=== PATIENT | male | born 1985 | race Hispanic/Latino ===

== ENCOUNTER 2024-03-23 18:26 | Observation (INO) | payer OTHER ==
[2024-03-23] MEDS ORDERED: NA CHLORIDE 0.9% 1,000 ML ONE (18:36)
[2024-03-23 18:43] LABS: Absolute Lymphocytes (CBC) 0.7 K/uL (0.7-4.9); Absolute Monocytes 0.8 K/uL (0.1-1.3); Absolute Neutrophil 10.7 K/uL (1.8-8.0); Basophils % 0.2 % (0-1.3); Eosinophils % 0.2 % (0-4.4); Hematocrit 35.4 % (39.6-49.0); Hemoglobin 12.2 g/dL (13.6-17.9); Lymphocytes % 5.9 % (15.3-44.8); MCH 30.7 pg (27.0-35.0); MCHC 34.3 g/dL (32.0-36.0); MCV 89.4 fL (80-100); MPV 8.3 fL (7.6-11.3); Monocytes % 6.3 % (3.3-12.3); Neutrophils % 87.4 % (41.7-73.7); Platelets 132 thou/uL (152-406); RBC Red Blood Cell Count 3.96 M/uL (4.33-5.43); Red Cell Distribution Width 14.6 % (12.1-15.2)
[2024-03-23 18:46] LABS: PT Prothrombin Time 13.1 SECONDS (9.4-12.5); PTT, Activated Partial Thromb 29.1 SECONDS (24.3-36.9); Protime INR 1.18
[2024-03-23 19:17] LABS: Albumin 3.2 g/dL (3.4-5.0); Albumin/Globulin Ratio 1.1 (1.1-1.8); Anion Gap 12.2 mEq/L (5.0-15.0); Bilirubin Direct 0.2 mg/dL (0-0.2); Bilirubin Indirect, Calculated 0.4 mg/dL (0.2-0.8); Bilirubin Total 0.6 mg/dL (0.2-1.0); Magnesium 1.6 mg/dL (1.6-2.4); Potassium 3.2 mEq/L (3.5-5.1); Protein, Total 6.2 g/dL (6.4-8.2)
[2024-03-23 19:21] LABS: Troponin High Sensitivity 72.6 pg/mL (<58.9)
--- NOTE | 2024-03-23 19:58 | RAD REPORT ---
EXAM: Head Brain Wo Cont HISTORY: CONFUSED COMPARISON: None TECHNIQUE: Multiple contiguous axial images were obtained for a CT of the brain without contrast. Sag ittal and coronal reformats were performed. One or more of the following dose reduction techniques were used: Automated exposure control, adjus tment of the mA and kV according to patient size, and iterative reconstruction. Unless otherwise specified, incidental findings do not require dedicated imaging follow-up. FINDINGS: No evidence of hydrocephalus, intracranial hemorrhage, or extra-axial fluid collection. The brain is normal in morphology. The calvarium is intact. The visualized paranasal sinuses and mastoid air cells are essentially clear . IMPRESSION: No evidence of acute intracranial abnormality.
--- NOTE | 2024-03-23 20:00 | ER ---
Nurse's Notes [facility] Name: Arthur Doran Age: 38 yrs Sex: Male : 1985 Arrival Date: 03/23/2024 Time: 18:26 Bed 6 Private MD: Diagnosis: Altered mental status, unspecified;Rhabdomyolysis;Heat exhaustion, unspecified Presentation: 03/23 18:27 Chief complaint: EMS states: toned out for unresponsive patient at his job. Works me1 outside. Patient only woke up for EMS when IV was established. 18 g LFA with about 500ml of NS administered. BGL 103. BP 111/58, hr 80s. Coronavirus screen:. Ebola Screen: No symptoms or risks identified at this time. Initial Sepsis Screen: Does the patient meet any 2 criteria? No. Patient's initial sepsis screen is negative. Does the patient have a suspected source of infection? No. Patient's initial sepsis screen is negative. Risk Assessment: Do you want to hurt yourself or someone else? Patient reports no desire to harm self or others. Onset of symptoms was March 23, 2024. 18:27 Method Of Arrival: EMS: [facility] me1 18:27 Acuity: JANI 3 me1 18:27 Care prior to arrival: Medication(s) given: Normal saline infusion, 500 mL, IV me1 initiated. 18 GA, in the left forearm. Triage Assessment: 18:31 General: Appears distressed, well developed, well nourished, Behavior is cooperative, me1 appropriate for age, anxious, Reports Patient was unresponsive while working outside at work. On arrival to ER patient is awake but not speaking and looking around as though he is confused. Pain: Unable to use pain scale. Patient is disoriented. EENT: No signs and/or symptoms were reported regarding the EENT system. Neuro: Level of Consciousness is awake, alert, obeys commands, confused, Oriented to person. Cardiovascular: Patient's skin is warm and dry. Respiratory: Airway is patent Respiratory effort is even, unlabored, Respiratory pattern is regular, symmetrical. GI: No signs and/or symptoms were reported involving the gastrointestinal system. : No signs and/or symptoms were reported regarding the genitourinary system. Derm: Skin is intact, Skin is clammy, Skin is pink, warm \T\ dry. Musculoskeletal: No signs and/or symptoms reported regarding the musculoskeletal system. Historical: - Allergies: 18:31 No Known Allergies; me1 - PMHx: 18:44 None; me1 - PSHx: 18:44 None; me1 - Immunization history:: Adult Immunizations unknown. - Infectious Disease History:: Denies. - Social history:: Smoking status: unknown. - Family history:: not pertinent. - Hospitalizations: : No recent hospitalization is reported. Screenin:34 [facility] ED Fall Risk Assessment (Adult) History of falling in the last 3 months, me1 including since admission No falls in past 3 months (0 pts) Confusion or Disorientation Yes (5 pts) Intoxicated or Sedated No (0 pts) Impaired Gait No (0 pts) Mobility Assist Device Used No (0 pt) Altered Elimination No (0 pt) Score/Fall Risk Level 0 - 2 = Low Risk Maintained a safe environment, Provided non-skid footwear, Hourly rounding (assess needs \T\ fall precautionary measures) done. Abuse screen: Denies threats or abuse. Nutritional screening: No deficits noted. Tuberculosis screening: No symptoms or risk factors identified. Assessment: 18:34 General: See triage assessment.. me1 18:43 Neuro: Level of Consciousness is awake, alert, obeys commands, Oriented to person, me1 place, time, situation, Patient is awake now and answering questions. A\T\Ox4. . 20:12 Reassessment: Patient appears in no apparent distress at this time. Patient and/or bm8 family updated on plan of care and expected duration. Pain level reassessed. Patient is alert, oriented x 3, equal unlabored respirations, skin warm/dry/pink. Patient denies pain at this time. Patient states symptoms have improved. General: Appears in no apparent distress. comfortable, Behavior is calm, cooperative, appropriate for age. Pain: Denies pain. Neuro: Level of Consciousness is awake, alert, obeys commands, Oriented to person, place, time, situation, Appropriate for age Sod Farmer are equal bilaterally Moves all extremities. Full function Speech is normal, Facial symmetry appears normal, Pupils are PERRLA, Intact. Cardiovascular: Denies chest pain, Capillary refill < 3 seconds in bilateral fingers Patient's skin is warm and dry. Respiratory: Airway is patent Respiratory effort is even, unlabored, Respiratory pattern is regular, symmetrical, Breath sounds are clear bilaterally. GI: No signs and/or symptoms were reported involving the gastrointestinal system. : No signs and/or symptoms were reported regarding the genitourinary system. EENT: No signs and/or symptoms were reported regarding the EENT system. Derm: No signs and/or symptoms reported regarding the dermatologic system. Musculoskeletal: No signs and/or symptoms reported regarding the musculoskeletal system. 21:01 Reassessment: Patient appears in no apparent distress at this time. No changes from bm8 previously documented assessment. Patient and/or family updated on plan of care and expected duration. Pain level reassessed. Patient is alert, oriented x 3, equal unlabored respirations, skin warm/dry/pink. Patient denies pain at this time. Patient states symptoms have improved. Vital Signs: 18:27 BP 106 / 61; Pulse 85; Resp 18; Temp 97.9; Pulse Ox 94% ; me1 18:44 Weight 65.77 kg; Height 5 ft. 5 in. ; Pain 0/10; me1 20:12 BP 112 / 60; Pulse 66; Resp 17; Temp 97.9; Pulse Ox 94% ; Pain 0/10; bm8 21:01 BP 96 / 49; Pulse 72; Resp 17; Temp 97.9; Pulse Ox 97% ; Pain 0/10; bm8 18:44 Body Mass Index 24.13 (65.77 kg, 165.1 cm) me1 18:44 Pain Scale: Adult me1 20:12 Pain Scale: Adult bm8 21:01 Pain Scale: Adult bm8 [place] Coma Score: 20:12 Eye Response: spontaneous(4). Motor Response: obeys commands(6). Verbal Response: bm8 oriented(5). Total: 15. 21:01 Eye Response: spontaneous(4). Motor Response: obeys commands(6). Verbal Response: bm8 oriented(5). Total: 15. ED Course: 18:27 Patient arrived in ED. rn 18:27 Pankaj Bhatt MD is Attending Physician. rn 18:27 Makeda Poe RN is Primary Nurse. me1 18:30 Triage completed. me1 18:31 Arm band placed on Patient placed in an exam room. me1 18:34 Patient has correct armband on for positive identification. Bed in low position. Call me1 light in reach. Side rails up X2. Provided Education on: POC. Verbalized understanding. . Client placed on continuous cardiac and pulse oximetry monitoring. NIBP monitoring applied. court monitor on. Pulse ox on. NIBP on. 18:34 No provider procedures requiring assistance completed. Maintain EMS IV. Dressing me1 intact. Good blood return noted. Site clean \T\ dry. Gauge \T\ site: 18g LFA. Flushed with 10 mL NS. 18:37 Basic Metabolic Panel Sent. me1 18:37 CBC with Diff Sent. me1 18:37 Hepatic Function Sent. me1 18:37 Magnesium Sent. me1 18:37 Protime (+inr) Sent. me1 18:37 Ptt, Activated Sent. me1 18:37 Troponin High Sensitivity Sent. me1 18:43 EKG done, by ED staff, reviewed by Pankaj Bhatt MD. me1 19:31 CT Head Brain wo Cont In Process Unspecified. EDMS 19:44 Chest Single View XRAY In Process Unspecified. EDMS 19:59 Jorge Luis Hinds is Hospitalizing Provider. rn 20:12 Report received from STEPHANIE garcia. bm8 20:12 Patient admitted, IV remains in place. Patient maintains SpO2 saturation greater than bm8 95% on room air. Administered Medications: 18:44 Drug: NS 0.9% IV 1000 ml IV at 1000 ml once Route: IV; Rate: 1000 ml; Site: left kc6 forearm; 20:12 Follow up: Response: No adverse reaction; IV Status: Completed infusion; IV Intake: bm8 1000ml 20:11 Drug: Calcium Gluconate IVPB 1 grams IVPB once over 60 mins; (mix in NS 100 mL) Route: bm8 IVPB; Infused Over: 60 mins; Site: left forearm; 21:00 Follow up: Response: No adverse reaction; IV Status: Completed infusion; IV Intake: [id number] 20:35 Drug: Aspirin PO 325 mg PO once Route: PO; bm8 20:57 Follow up: Response: No adverse reaction bm8 Medication: 18:34 VIS not applicable for this client. me1 Intake: 20:12 IV: 1000ml; Total: 1000ml. bm8 21:00 IV: 50ml; Total: 1050ml. bm8 Outcome: 19:59 Decision to Hospitalize by Provider. rn 21:56 Admitted to [facility] via [facility] room 415, bm8 21:56 Condition: stable 21:56 Instructed on follow up and referral plans. the need for admit, safety practices, Demonstrated understanding of instructions, follow-up care, 21:57 Patient left the ED. bm8 Signatures: Dispatcher [employer] EDPankaj Rainey MD MD rn Campbell, Kaitlyn RN RN kc6 Makeda Poe RN RN il1 Anupam Shah RN RN bm8
--- NOTE | 2024-03-23 20:00 | EDPHYS ---
Physician Documentation [facility] Name: Arthur Doran Age: 38 yrs Sex: Male : 1985 Arrival Date: 03/23/2024 Time: 18:26 Bed 6 Private MD: ED Physician Pankaj Bhatt HPI: 03/23 19:31 This 36 yrs old Male presents to ER via EMS with complaints of Altered Mental rn Status, Heat Exposure. 19:31 The patient presents with decreased responsiveness, disorientation. Onset: The rn symptoms/episode began/occurred today. Possible causes: Heat exhaustion. Current symptoms: In the emergency department the patient's symptoms have improved. It is unknown whether or not the patient has had similar symptoms in the past. 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 They reported he started acting funny and confused, try to get him to drink stuff but did not improve. Patient was not acting right for EMS and nonverbal. Glucose was greater than 100. Patient opened eyes but did not really speak or follow commands appropriately. Now improving. Patient does not recall what happened and is starting to speak a little bit more. Denies drug use. No known trauma.. Historical: - Allergies: 18:31 No Known Allergies; me1 - PMHx: 18:44 None; me1 - PSHx: 18:44 None; me1 - Immunization history:: Adult Immunizations unknown. - Infectious Disease History:: Denies. - Social history:: Smoking status: unknown. - Family history:: not pertinent. - Hospitalizations: : No recent hospitalization is reported. ROS: 19:31 Unable to obtain ROS due to altered mental status, rn Exam: 19:31 Constitutional: This is a well developed, well nourished patient who is awake, alert, rn seems confused and very slow to respond Head/Face: Normocephalic, atraumatic. Eyes: Pupils equal round and reactive to light, extra-ocular motions intact. ENT: Dry mucous membranes Cardiovascular: Regular rate and rhythm. No pulse deficits. Respiratory: No increased work of breathing, no retractions or nasal flaring. Abdomen/GI: Soft, non-tender MS/ Extremity: Pulses equal, no cyanosis. Neurovascular intact. Full, normal range of motion. Equal circumference. Neuro: Awake, alert, slow to respond but moves all 4 extremities. 19:56 ECG was reviewed by the Attending Physician. rn Vital Signs: 18:27 BP 106 / 61; Pulse 85; Resp 18; Temp 97.9; Pulse Ox 94% ; me1 18:44 Weight 65.77 kg; Height 5 ft. 5 in. ; Pain 0/10; me1 20:12 BP 112 / 60; Pulse 66; Resp 17; Temp 97.9; Pulse Ox 94% ; Pain 0/10; bm8 21:01 BP 96 / 49; Pulse 72; Resp 17; Temp 97.9; Pulse Ox 97% ; Pain 0/10; bm8 18:44 Body Mass Index 24.13 (65.77 kg, 165.1 cm) me1 18:44 Pain Scale: Adult me1 20:12 Pain Scale: Adult bm8 21:01 Pain Scale: Adult bm8 [place] Coma Score: 20:12 Eye Response: spontaneous(4). Motor Response: obeys commands(6). Verbal Response: bm8 oriented(5). Total: 15. 21:01 Eye Response: spontaneous(4). Motor Response: obeys commands(6). Verbal Response: bm8 oriented(5). Total: 15. MDM: 18:27 Patient medically screened. rn 19:52 ED course: Patient much more alert, has elevated troponin and signs of rhabdomyolysis. rn Will admit to hospital service for further care.. 20:00 Differential Diagnosis: electrolyte abnormality, seizure, volume depletion, rn Rhabdomyolysis, dehydration, heat exhaustion. Data reviewed: vital signs, nurses notes, lab test result(s), EKG, radiologic studies, CT scan, and as a result, I will admit patient. Data reviewed: radiologic studies, plain films. Consideration of Admission/Observation Patient was admitted/placed on observation. Escalation of care including admission/observation considered. Counseling: I had a detailed discussion with the patient and/or guardian regarding the historical points, exam findings, and any diagnostic results supporting the discharge/admit diagnosis, lab results, radiology results, the need for further work-up and treatment in the hospital. Response to treatment: the patient's symptoms have markedly improved after treatment. 03/23 18: Order name: Basic Metabolic Panel; Complete Time: 19:30 rn 03/23 18:28 Order name: CBC with Diff; Complete Time: :30 rn 03/23 18:28 Order name: Hepatic Function; Complete Time: 19:30 rn 03/23 18:28 Order name: Magnesium; Complete Time: 19:30 rn 03/23 18:28 Order name: Protime (+inr); Complete Time: 19:30 rn 03/23 18:28 Order name: Ptt, Activated; Complete Time: 19:30 rn 03/23 18:28 Order name: Troponin High Sensitivity; Complete Time: 19:30 rn 03/23 18:28 Order name: UDS rn 03/23 18:28 Order name: Urinalysis w/ reflexes rn 03/23 18:28 Order name: CK; Complete Time: 19:30 rn 03/23 18:42 Order name: ETOH Level; Complete Time: 19:30 rn 03/23 18:45 Order name: Glucose, Ancillary Testing; Complete Time: 19:30 EDWA 03/23 21:05 Order name: Urinalysis w/ reflexes EDWA 03/23 21:05 Order name: CBC with Automated Diff EDWA 03/23 21:05 Order name: CBC with Automated Diff EDWA 03/23 21:05 Order name: Comprehensive Metabolic Panel EDWA 03/23 21:05 Order name: Comprehensive Metabolic Panel EDWA 03/23 21:05 Order name: Creatine Phosphokinase EDWA 03/23 21:05 Order name: Creatine Phosphokinase EDWA 03/23 21:05 Order name: Creatine Phosphokinase EDWA 03/23 21:05 Order name: Creatine Phosphokinase EDWA 03/23 21:05 Order name: Lipid Profile EDWA 03/23 21:05 Order name: Lipid Profile EDWA 03/23 21:05 Order name: Magnesium EDMS 03/23 21:05 Order name: Magnesium EDMS 03/23 21:05 Order name: Thyroid Stimulating Hormone EDWA 03/23 21:05 Order name: Thyroid Stimulating Hormone EDWA 03/23 21:05 Order name: Troponin High Sensitivity EDWA 03/23 21:05 Order name: Troponin High Sensitivity EDWA 03/23 21:05 Order name: Troponin High Sensitivity EDWA 03/23 21:05 Order name: Troponin High Sensitivity EDWA 03/23 18:28 Order name: CT Head Brain wo Cont; Complete Time: 20:01 rn 03/23 18:28 Order name: Chest Single View XRAY rn 03/23 21:05 Order name: Echo with Doppler EDMS 03/23 21:05 Order name: Echo with Doppler EDMS 03/23 21:06 Order name: Carotid Artery Bilateral EDMS 03/23 18:28 Order name: Cardiac monitoring; Complete Time: 18:43 rn 03/23 18:28 Order name: EKG - Nurse/Tech; Complete Time: 18:43 rn 03/23 18:28 Order name: IV Saline Lock; Complete Time: 18:28 rn 03/23 18:28 Order name: Labs collected and sent; Complete Time: 18:44 rn 03/23 18:28 Order name: NPO; Complete Time: 18:28 rn 03/23 18:28 Order name: O2 Per Protocol; Complete Time: 18:28 rn 03/23 18:28 Order name: O2 Sat Monitoring; Complete Time: 18:28 rn 03/23 18:28 Order name: Glucose Level; Complete Time: 18:36 rn EC:56 Rate is 83 beats/min. Rhythm is regular. QRS [place] is Normal. CO interval is normal. QRS rn interval is normal. QT interval is normal. No Q waves. T waves are Normal. No ST changes noted. Clinical impression: Normal ECG. Interpreted by me. Reviewed by me. Administered Medications: 18:44 Drug: NS 0.9% IV 1000 ml IV at 1000 ml once Route: IV; Rate: 1000 ml; Site: left kc6 forearm; 20:12 Follow up: Response: No adverse reaction; IV Status: Completed infusion; IV Intake: bm8 1000ml 20:11 Drug: Calcium Gluconate IVPB 1 grams IVPB once over 60 mins; (mix in NS 100 mL) Route: bm8 IVPB; Infused Over: 60 mins; Site: left forearm; 21:00 Follow up: Response: No adverse reaction; IV Status: Completed infusion; IV Intake: [id number] 20:35 Drug: Aspirin PO 325 mg PO once Route: PO; bm8 20:57 Follow up: Response: No adverse reaction bm8 Disposition Summary: 03/23/24 19:59 Hospitalization Ordered Notes: Hospitalization Status: Inpatient Admission rn Provider: Jorge Luis Hinds rn [facility] rn Condition: Stable rn Problem: new rn Symptoms: have improved rn Bed/Room Type: Standard rn Room Assignment: 415(09/24/24 21:11) Diagnosis - Altered mental status, unspecified rn - Rhabdomyolysis rn - Heat exhaustion, unspecified rn Forms: - Medication Reconciliation Form rn - SBAR form rn - Leadership Thank You Letter rn Signatures: Dispatcher [employer] EDMS Magi Zamudio, RN RN Pankaj Rodriguez MD MD rn Campbell, Kaitlyn, RN RN kc6 Makeda Poe RN RN me1 Jonelle Mayes Brad RN RN bm8 Corrections: (The following items were deleted from the chart) 18:28 18:28 Head Brain Wo Cont+CT.RAD.BRZ ordered. EDMS EDMS 18:28 18:28 Chest Single View+RAD.RAD.BRZ ordered. EDWA EDWA 20:53 19:59 rn 21:11 20:53 203 [facility]
[2024-03-23] MEDS ORDERED: CALCIUM GLUCONATE 1 GM IVPB 1 GM/50 ML BAG IV ONE (20:04)
[2024-03-23] MEDS ORDERED: ASPIRIN 325 MG TAB ONE (20:27)
[2024-03-23 20:33] LABS: Specific Gravity < 1.005 (1.005-1.030); Sqamous Epithelial None Seen /HPF (None Seen); Urine Bacteria <20 /HPF (<20); Urine Bilirubin NEGATIVE (Negative); Urine Blood 1+ (Negative); Urine Clarity Clear (Clear); Urine Color Colorless (Yellow); Urine Crystals Unidentified Few /HPF (None Seen); Urine Culture Reflex Order NOT NEEDED; Urine Glucose NEGATIVE (Negative); Urine Ketones 1+ (Negative); Urine Microscopic Reflex YN ORDER UMIC; Urine Nitrite NEGATIVE (Negative); Urine Protein NEGATIVE (Negative); Urine RBC <5 /HPF (None Seen); Urine Urobilinogen Normal (Normal); Urine WBC <5 /HPF (<5); Urine pH 5.5 (5.0-7.0)
[2024-03-23 20:40] LABS: Barbiturates NEGATIVE (NEGATIVE); Benzodiazepines NEGATIVE (NEGATIVE); Cocaine NEGATIVE (NEGATIVE); METHAMPHETAM NEGATIVE (NEGATIVE); Methadone NEGATIVE (NEGATIVE); Opiates NEGATIVE (NEGATIVE); Phencyclidine NEGATIVE (NEGATIVE); THC Cannibis NEGATIVE (NEGATIVE)
[2024-03-23] MEDS ORDERED: ACETAMINOPHEN 500 MG TAB PO PRN (20:47)
[2024-03-23] MEDS ORDERED: ONDANSETRON 4 MG/2 ML VIAL IV PRN (20:47)
--- NOTE | 2024-03-23 21:17 | P.HP ---
Certification for Inpatient Patient admitted to: Observation With expected LOS: <2 Midnights Practitioner: I am a practitioner with admitting privileges, knowledge of patient current condition, hospital course, and medical plan of care. Services: Services provided to patient in accordance with Admission requirements found in Title 42 Section 412.3 of the Code of Federal Regulations Patient History Date of Service: 03/23/24 Reason for admission: Syncope History of Present Illness: 36-year-old gentleman with no known past medical history was brought to the emergency department because he passed out. Patient does not remember the events leading to him passing out. According to report patient woke up in the ambulance on the way to the ER. Workup in the ER has been unremarkable except elevated CK and mildly elevated troponin. EKG showed sinus rhythm with no ischemic change, chests x-ray unremarkable. Patient denied any complaint except fatigue during my examination. Patient is hospitalized for further workup for syncope. - Past Medical/Surgical History Diabetic: No -: None -: None - Family History Mother -: Diabetes, Kidney disease - Social History Smoking Status: Current every day smoker (1 to 1-1/2 packs/day.) Alcohol use: Yes Place of Residence: Home Review of Systems 10-point ROS is otherwise unremarkable Physical Examination - Physical Exam General: Alert, In no apparent distress, Oriented x3 HEENT: Atraumatic, Normocephalic, PERRLA, Mucous membr. moist/pink, EOMI, Sclerae nonicteric Neck: Supple, JVD not distended Respiratory: Clear to auscultation bilaterally, Normal air movement Cardiovascular: No edema, Regular rate/rhythm, Normal S1 S2, No murmurs Capillary refill: <2 Seconds Gastrointestinal: Normal bowel sounds, Soft and benign, No tenderness Musculoskeletal: No swelling, No tenderness Integumentary: No rashes, No cyanosis Neurological: Normal speech, Normal strength at 5/5 x4 extr, Cranial nerves 3-12 intact Lymphatics: No axilla or inguinal lymphadenopathy - Studies Laboratory Data (last 24 hrs) 03/23/24 03/23/24 03/23/24 18:33 18:33 18:33 WBC 12.20 H Hgb 12.2 L Hct 35.4 L Plt Count 132 L PT 13.1 H INR 1.18 APTT 29.1 Sodium 128 L Potassium 3.2 L BUN 17 Creatinine 0.78 Glucose 99 Magnesium 1.6 Total Bilirubin 0.6 AST 42 H ALT 24 Alkaline Phosphatase 48 Assessment and Plan - Problems (Diagnosis) (1) Syncope and collapse Current Visit: Yes Status: Acute (2) Heat exhaustion Current Visit: Yes Status: Acute (3) Elevated CK Current Visit: Yes Status: Acute (4) Hyponatremia Current Visit: Yes Status: Acute (5) Dehydration Current Visit: Yes Status: Acute - Plan Syncope Heat exhaustion Place patient under observation Aggressively hydrate with IV NS Syncope workup with echocardiogram and carotid Doppler. Telemetry Elevated CK Aggressively hydrate with IV NS Monitor CK levels daily. Hyponatremia Dehydration IV normal saline Monitor BMP. DVT prophylaxis: Lovenox. - Advance Directives Does patient have a Living Will: No Does patient have a Durable POA for Healthcare: No
--- NOTE | 2024-03-23 21:53 | RAD REPORT ---
EXAMINATION: ONE VIEW CHEST XR CLINICAL INDICATION: Male, 38 years old.,AMS TECHNIQUE: Frontal chest projection is submitted. Examination is limited by patient positioning and t echnique. COMPARISON: No prior exam. FINDINGS: Patchy central and basilar left airspace opacification. No pneumothorax or sizable effusion. Heart i s mildly enlarged. Midthoracic dextroconvex scoliosis.. IMPRESSION: Left Central and basilar airspace opacities, concerning for pneumonia versus regional edema.
[2024-03-23] MEDS: NA CHLORIDE 0.9% 1,000 ML IV SCH (22:28)
[2024-03-23 22:47] VITALS: BMI 25.6
[2024-03-24 05:33] LABS: Absolute Lymphocytes (CBC) 1.6 K/uL (0.7-4.9); Absolute Monocytes 0.8 K/uL (0.1-1.3); Absolute Neutrophil 3.4 K/uL (1.8-8.0); Basophils % 0.3 % (0-1.3); Eosinophils % 0.6 % (0-4.4); Hematocrit 35.7 % (39.6-49.0); Hemoglobin 12.4 g/dL (13.6-17.9); Lymphocytes % 26.6 % (15.3-44.8); MCHC 34.8 g/dL (32.0-36.0); MCV 89.2 fL (80-100); MPV 7.9 fL (7.6-11.3); Monocytes % 13.4 % (3.3-12.3); Neutrophils % 59.1 % (41.7-73.7); Platelets 143 thou/uL (152-406); RBC Red Blood Cell Count 4.01 M/uL (4.33-5.43); Red Cell Distribution Width 14.6 % (12.1-15.2)
[2024-03-24 06:16] LABS: Albumin 2.9 g/dL (3.4-5.0); Albumin/Globulin Ratio 1.1 (1.1-1.8); Anion Gap 10.3 mEq/L (5.0-15.0); Globulin 2.7 g/dL (2.3-3.5); Magnesium 2.1 mg/dL (1.6-2.4); Potassium 3.3 mEq/L (3.5-5.1); Protein, Total 5.6 g/dL (6.4-8.2); Thyroid Stimulating Hormone 1.45 uIU/mL (0.358-3.740); Troponin High Sensitivity 46.1 pg/mL (<58.9)
--- NOTE | 2024-03-24 06:49 | P.PN ---
Date of Service: 03/24/24 Subjective: feeling significantly better today denies any muscle cramps/pain doesn't recall events leading up to episode ROS: 10 point ROS as noted above, otherwise negative Physical Exam: GEN: Alert, oriented, NAD HEENT: Normal conjunctiva, sclera anicteric CV: Regular rate and rhythm, no edema Pulm: Nonlabored respirations on room air, clear bilaterally ABD: Soft, nontender, nondistended Integumentary: No rashes Neuro: Normal speech, normal affect vitals reviewed Problem List: Syncope Rhabdomyolysis NSTEMI Hyponatremia, resolved Syncope Rhabdomyolysis Patient found unresponsive at his job. Works outdoors. Cannot recall events prior to him passing out. Coworkers reports patient with increased confusion and decreased responsiveness prior to EMS arrival. they were concerned for heat exposure. more awake/alert after arrival to ED. ?suspect heat exhaustion / dehydration CXR (03/23): Left central and basilar airspace opacities. Pneumonia vs regional edema. CT head (03/23): no acute findings CK 1455 -> 2833 (03/24) given 1L IVF bolus in ED continue IV fluids NSTEMI Denies chest pain Troponins mildly elevated but trended flat Monitor on telemetry ?demand ischemia in setting of rhabdo / dehydration / heat exhaustion Echo ordered to eval EF / stenosis Hyponatremia, resolved improved after IVF in ED VTE: Lovenox Code: Full Dispo: Home Time Spent Managing Pts Care (In Minutes): 41
--- NOTE | 2024-03-24 07:56 | RAD REPORT ---
EXAMINATION: US CAROTID DUPLEX CLINICAL INDICATION: Syncope. TECHNIQUE: Real-time grayscale, color flow and spectral Doppler sonographic images were obtained of t extracranial carotid system using a linear transducer. COMPARISON: No prior exam. FINDINGS: The velocity of the right internal carotid artery 166 cm/s. Right ICA/CCA ratio 1.4 Velocity left internal carotid artery 132 cm/s Left ICA/CCA ratio 1.2 No significant plaque within the arteries Vertebral arteries demonstrate antegrade flow NASCET criteria used. Mild 0-49% stenosis Moderate 50-69% stenosis Severe 70-99% stenosis IMPRESSION: Mild elevation right internal carotid artery velocity probably secondary to tortuosity rather than si gnificant stenosis
[2024-03-24] MEDS: POTASSIUM CL SA 10 MEQ TAB PO ONE (08:16)
[2024-03-24] MEDS: ENOXAPARIN 40 MG/0.4 ML SQ SCH (08:17)
[2024-03-24 08:39] LABS: Specific Gravity 1.011 (1.005-1.030); Sqamous Epithelial None Seen /HPF (None Seen); Urine Bacteria None Seen /HPF (<20); Urine Bilirubin NEGATIVE (Negative); Urine Blood Negative (Negative); Urine Clarity Clear (Clear); Urine Color Light-Yellow (Yellow); Urine Culture Reflex Order NOT NEEDED; Urine Glucose NEGATIVE (Negative); Urine Ketones 2+ (Negative); Urine Microscopic Reflex YN ORDER UMIC; Urine Mucus Slight /HPF (None Seen); Urine Nitrite NEGATIVE (Negative); Urine Protein NEGATIVE (Negative); Urine RBC <5 /HPF (None Seen); Urine Urobilinogen Normal (Normal); Urine WBC <5 /HPF (<5); Urine pH 5.5 (5.0-7.0)
[2024-03-24 09:36] VITALS: O2SAT 98
--- NOTE | 2024-03-24 13:39 | ECHO ---
HEIGHT: 5 ft 5 in WEIGHT: 145 lb 0 oz DATE OF STUDY: 03/24/[address]: Jorge Luis Hinds MD 2-DIMENSIONAL: YES M.MODE: YES DOPPLER: YES COLOR FLOW: YES TDS: PORTABLE: YES DEFINITY: BUBBLE STUDY: DIAGNOSIS: SYNCOPE CARDIAC HISTORY: CATHERIZATION: NO SURGERY: NO PROSTHETIC VALVE: NO PACEMAKER: NO MEASUREMENTS (cm) DIASTOLIC (NORMALS) SYSTOLIC (NORMALS) IVSd 1.0 (0.6-1.2) LA Diam 3.9 (1.9-4.0) LVEF 65% LVIDd 5.2 (3.5-5.7) LVIDs 3.0 (2.0-3.5) %FS LVPWd 1.0 (0.6-1.2) Ao Diam 3.7 (2.0-3.7) 2 DIMENSIONAL ASSESSMENT: RIGHT ATRIUM: NORMAL LEFT ATRIUM: NORMAL RIGHT VENTRICLE: NORMAL LEFT VENTRICLE: NORMAL TRICUSPID VALVE: NORMAL MITRAL VALVE: TRACE MITRAL REGURGITATION PULMONIC VALVE: NORMAL AORTIC VALVE: NORMAL PERICARDIAL EFFUSION: NONE AORTIC ROOT: NORMAL LEFT VENTRICULAR WALL MOTION: NORMAL DOPPLER/COLOR FLOW: NORMAL COMMENTS: 1. NORMAL LEFT VENTRICULAR SYSTOLIC FUNCTION, EJECTION FRACTION 65%, NORMAL WALL MOTION 2. NORMAL DIASTOLIC FUNCTION TECHNOLOGIST: ZACH SOLER
--- NOTE | 2024-03-24 13:49 | EKG ---
Test Date: 2024-03-23 Test Time: 18:40:16 Lead Clinical Research Coordinator: MEASUREMENT RESULTS: Intervals: Rate: 83 MI: 172 QRSD: 88 QT: 360 QTc: 423 [place]: P: 43 MI: 172 QRS: 79 T: 57 INTERPRETIVE STATEMENTS: Normal sinus rhythm Normal ECG No previous ECG available for comparison Electronically Signed On 03-24-24 13:08:10 CDT by Miki Grier
[2024-03-24 14:23] LABS: Troponin High Sensitivity 23.3 pg/mL (<58.9)
[2024-03-24 17:25] VITALS: BP 111/59; TEMP 98.3
--- NOTE | 2024-03-25 06:23 | P.DS ---
Admission Date: 03/23/24 Discharge Date: 03/24/24 Disposition: ROUTINE DISCHARGE Discharge Condition: GOOD Reason for Admission: Syncope Brief History of Present Illness: 36-year-old gentleman with no known past medical history was brought to the emergency department because he passed out. Patient does not remember the events leading to him passing out. According to report patient woke up in the ambulance on the way to the ER. Workup in the ER has been unremarkable except elevated CK and mildly elevated troponin. EKG showed sinus rhythm with no ischemic change, chests x-ray unremarkable. Patient denied any complaint except fatigue during my examination. Patient is hospitalized for further workup for syncope. Hospital Course: Problem List: Syncope secondary to heat exhaustion / dehydration Rhabdomyolysis, improved NSTEMI Hyponatremia, resolved Physician discharge instructions: Patient presented to ED after being found unresponsive at his job. Coworkers report patient with increased confusion, decreased responsiveness prior to EMS arrival. In the ED he was found to have dark urine, elevated CPK, slightly low blood pressure, and mild hyponatremia; all consistent with heat exhaustion / dehydration. Patient reports he has recently started this job working outside in the heat. Symptoms quickly resolved with IV hydration. CPK was noted to be elevated on admission 1455 and blank to 2833 the following morning. He continued with IV fluids and reported feeling back to his baseline and requesting to discharge home. Discussed risks, but given his stable vitals and how well he was doing clinically, we rechecked his CPK in the afternoon of 03/24, which improved to 2552 with normal renal function. CT head was negative for any acute findings. Chest xray was negative. Carotid ultrasound and echocardiogram were without any acute findings. Patient requested discharge home, and discussed precautions with patient - cont inue to ensure he is adequately hydrated and taking scheduled breaks if working in the heat. Advised to not work for next few days to recover. Troponin's were noted to be mildly elevated on admission but trended flat (peak 78). Patient denied any chest pain or shortness of breath. Echocardiogram was normal. Most consistent with demand ischemia in setting of heat exhaustion / rhabdomyolysis No further cardiac workup warranted at this time. Advised smoking cessation. Medications: no new medications. Follow up: PCP 3-5 days Please call to schedule / confirm appointments Physical Exam: GEN: Alert, oriented, NAD HEENT: Normal conjunctiva, sclera anicteric CV: Regular rate and rhythm, no edema Pulm: Nonlabored respirations on room air, clear bilaterally ABD: Soft, nontender, nondistended Integumentary: No rashes Neuro: Normal speech, normal affect Vital Signs/Physical Exam: Temp Pulse Resp BP Pulse Ox 98.3 F 64 18 111/59 L 98 03/24/24 16:00 03/24/24 16:00 03/24/24 16:00 03/24/24 16:00 03/24/24 16:00 Laboratory Data at Discharge: WBC 5.80 thou/uL (4.3-10.9) 03/24/24 05:22 Hgb 12.4 g/dL (13.6-17.9) L 03/24/24 05:22 Hct 35.7 % (39.6-49.0) L 03/24/24 05:22 Plt Count 143 thou/uL (152-406) L 03/24/24 05:22 PT 13.1 SECONDS (9.4-12.5) H 03/23/24 18:33 INR 1.18 03/23/24 18:33 APTT 29.1 SECONDS (24.3-36.9) 03/23/24 18:33 Sodium 141 mEq/L (136-145) D 03/24/24 05:22 Potassium 3.3 mEq/L (3.5-5.1) L 03/24/24 05:22 BUN 13 mg/dL (7-18) 03/24/24 05:22 Creatinine 0.58 mg/dL (0.70-1.30) L 03/24/24 05:22 Glucose 75 mg/dL (74-106) 03/24/24 05:22 Magnesium 2.1 mg/dL (1.6-2.4) 03/24/24 05:22 Total Bilirubin 1.0 mg/dL (0.2-1.0) 03/24/24 05:22 AST 75 U/L (15-37) H 03/24/24 05:22 ALT 30 U/L (16-61) 03/24/24 05:22 Alkaline Phosphatase 41 U/L (45-117) L 03/24/24 05:22 Triglycerides 76 mg/dL (<150) 03/24/24 05:22 Cholesterol 117 mg/dL (<200) 03/24/24 05:22 HDL Cholesterol 52 mg/dL (40-60) 03/24/24 05:22 Cholesterol/HDL Ratio 2.25 03/24/24 05:22 Home Medications: NK [No Home Meds] 03/24/24 Physician Discharge Instructions: Physician discharge instructions: Patient presented to ED after being found unresponsive at his job. Coworkers report patient with increased confusion, decreased responsiveness prior to EMS arrival. In the ED he was found to have dark urine, elevated CPK, slightly low blood pressure, and mild hyponatremia; all consistent with heat exhaustion / dehydration. Patient reports he has recently started this job working outside in the heat. Symptoms quickly resolved with IV hydration. CPK was noted to be elevated on admission 1455 and blank to 2833 the following morning. He continued with IV fluids and reported feeling back to his baseline and requesting to discharge home. Discussed risks, but given his stable vitals and how well he was doing clinically, we rechecked his CPK in the afternoon of 03/24, which improved to 2552 with normal renal function. CT head was negative for any acute findings. Chest xray was negative. Carotid ultrasound and echocardiogram were without any acute findings. Patient requested discharge home, and discussed precautions with patient - continue to ensure he is adequately hydrated and taking scheduled breaks if working in the heat. Advised to not work for next few days to recover. Troponin's were noted to be mildly elevated on admission but trended flat (peak 78). Patient denied any chest pain or shortness of breath. Echocardiogram was normal. Most consistent with demand ischemia in setting of heat exhaustion / rhabdomyolysis No further cardiac workup warranted at this time. Advised smoking cessation. Medications: no new medications. Follow up: PCP 3-5 days Please call to schedule / confirm appointments Followup: NONE,NONE [Primary Care Provider] - Time spent managing pt's care (in minutes): 45
== END 2024-03-24 16:58 | disposition home or self-care (01) ==
LOC: ER 18:26 → EDBD 18:26 → 4TH 21:40
PROVIDERS: ADMIT Internal Medicine; ATTEND Hospitalist
DX: M62.82 Rhabdomyolysis (principal); T67.5XXA Heat exhaustion, unspecified, initial encounter; E87.1 Hypo-osmolality and hyponatremia; E86.0 Dehydration; R74.8 Abnormal levels of other serum enzymes; F17.210 Nicotine dependence, cigarettes, uncomplicated; X30.XXXA Exposure to excessive natural heat, initial encounter; Y93.89 Activity, other specified; Y92.89 Other specified places as the place of occurrence of the external cause; Y99.0 Civilian activity done for income or pay; Z71.6 Tobacco abuse counseling
CPT/HCPCS: 96365; 96361; 93005; 93306; 85025 ×2; 81001 ×2; 80048; 36415; 83735 ×2; 82550 ×3; 85610; 80061; 82947; 80076; 85730; 84443; 84484 ×4; 80053; 80307; 70450; 71045; 93880; 94760 ×2; 99285; 82077; J0612; J1650; J7030 ×3; G0378